=== PATIENT | female | born 1995 | race Caucasian/White ===

== ENCOUNTER 2021-07-10 08:39 | Emergency (ER) | payer OTHER ==
[~2021-07-10] VITALS: Ht 157.5 cm; Wt 75.0 kg
[2021-07-10 08:50] VITALS: BP 115/83
== END 2021-07-10 09:57 | disposition left against medical advice (07) ==
LOC: ER 09:25
DX: Z53.21 Procedure and treatment not carried out due to patient leaving prior to being seen by health care provider (principal)

== ENCOUNTER 2021-07-11 09:45 | Emergency (ER) | payer OTHER ==
[~2021-07-11] VITALS: Ht 175.3 cm; Wt 61.0 kg
[2021-07-11 10:43] LABS: CLARITY URINE CLOUDY (CLEAR); COLOR URINE ORANGE (YELLOW); KETONES URINE TRACE (NEGATIVE); LEUKOCYTE ESTERASE URINE 1+ (NEGATIVE); NITRITE URINE NEGATIVE (NEGATIVE); OCCULT BLOOD URINE 3+ (NEGATIVE); PROTEIN URINE 1+ (NEGATIVE); SPECIFIC GRAVITY URINE 1.033 (1.005-1.030)
[2021-07-11] MEDS ORDERED: IBUPROFEN 600MG TABLET PO ONE (12:45)
[2021-07-11 13:56] LABS: HEMATOCRIT. 42.4 % (36.0-48.0); HEMOGLOBIN. 14.1 g/dL (12.0-16.0); MEAN CORPUSCULAR HEMOGLOBIN 29.8 pg (28.0-32.0); MEAN CORPUSCULAR VOLUME 89.5 fL (81.0-99.0); MEAN PLATELET VOLUME 8.2 fl (7.4-10.4); PLATELET 258 x1000/uL (130-400); RED BLOOD CELL COUNT 4.74 mill/uL (4.2-5.4); RED CELL DISTRIBUTION WIDTH 12.6 % (11.6-14.6)
[2021-07-11 14:03] LABS: CHLORIDE 107 mEq/L (98-107)
[2021-07-11 14:12] LABS: PLATELET ESTIMATE NORMAL
[2021-07-11 14:13] LABS: B-HCG QUANTITATIVE < 1 mIU/mL (<3)
[2021-07-11 14:32] VITALS: BP 117/71
== END 2021-07-11 14:39 | disposition home or self-care (01) ==
LOC: ER 09:45
DX: R10.2 Pelvic and perineal pain (principal); Z98.890 Other specified postprocedural states
CPT/HCPCS: 36415; 76830; 76856; 80053; 81003; 81025; 84702; 85025; 99284